=== PATIENT | female | born 1940 | race Caucasian/White ===

== ENCOUNTER 2021-10-24 15:28 | Outpatient (CLI) | payer MEDICARE, BC ==
[2021-10-24 15:40] LABS: Bilirubin Negative (Negative); Blood, Urine Negative (Negative); Clarity Clear (Clear); Glucose, Urine (Dipstick) Negative (Negative); Ketone, Urine Negative (Negative); Leukocyte Negative (Negative); Nitrite Negative (Negative); Protein, Urine (Dipstick) Negative (Neg-Trace); Urobilinogen 0.2 mg/dL (Less than 2)
[2021-10-24 15:42] LABS: Bacteria/HPF None Seen HPF (None Seen); RBC/HPF None Seen HPF (0-3); Squamous Epithelial 0-3 HPF (0-3); WBC/HPF None Seen HPF (0-3)
== END 2021-10-24 15:29 | disposition home or self-care (01) ==
LOC: BURMANOR 15:28
PROVIDERS: ATTEND Registered Nurse Community Health
DX: D72.829 Elevated white blood cell count, unspecified (principal); R41.82 Altered mental status, unspecified
CPT/HCPCS: 81001